=== PATIENT | female | born 1945 | race Caucasian/White ===

== ENCOUNTER 2018-08-22 14:44 | Inpatient (IN) ==
[2018-08-22] MEDS ORDERED: LIDOCAINE 2% TOP JELLY 5 ML TUBE TOP ONE (17:05)
[2018-08-22] MEDS ORDERED: LIDOCAINE 2% TOP JELLY 20 ML VIAL INTRAURETH ONE (17:07)
[2018-08-22] MEDS ORDERED: LEVOFLOXACIN INJ 500 MG in PREMIX 1 EACH IV STA (17:16)
[2018-08-22 18:52] LABS: Apearance,Urine CLOUDY (Clear); Bacteria,Urine Many /HPF (Few); Bilirubin,Urine Negative (Negative); Blood, Urine Large mg/dL (Negative); Glucose,Urine (UA) Negative (Negative); Ketones,Urine Negative (Negative); Nitrite,Urine Positive (Negative); Protein,Urine 100 MG/DL; RBC,Urine 28 /HPF (0-4); Urine Color Yellow (Yellow); Urine Specific Gravity 1.014 (1.001-1.035); Urine Urobilinogen < 2.0 EU/DL (0.2-1.0); WBC,Urine 4761 /HPF (0-6)
[2018-08-22] MEDS: MEROPENEM 1,000 MG in SODIUM CHLORIDE 0.9% 100 ML IV SCH (20:12)
[2018-08-22] MEDS ORDERED: MORPHINE SULFATE PO PRN (21:36)
[2018-08-22] MEDS ORDERED: LEVALBUTEROL 0.31 MG/3 ML NEB RESP TX PRN (21:36)
[2018-08-22] MEDS ORDERED: IPRATROPIUM 500 MCG/2.5 ML NEB RESP TX PRN (21:36)
[2018-08-22] MEDS ORDERED: MAGNESIUM HYDROXIDE SUSP 30 ML UDCUP PO PRN (21:36)
[2018-08-22] MEDS ORDERED: DEXTROSE 50% 25 GM/50 ML SYRINGE IV PRN (21:36)
[2018-08-22] MEDS ORDERED: LORazepam 0.5 MG TABLET PO PRN (21:36)
[2018-08-22] MEDS ORDERED: ONDANSETRON 4 MG/2 ML VIAL IV PRN (21:36)
[2018-08-22] MEDS ORDERED: GLUCAGON 1 MG VIAL IM PRN (21:36)
[2018-08-22] MEDS: risperiDONE 0.5 MG TABLET PO SCH (22:25)
[2018-08-22] MEDS: cloNIDine 0.1 MG TABLET PO PRN (22:25)
[2018-08-22] MEDS: DONEPEZIL 10 MG TABLET PO SCH (22:25)
[2018-08-22] MEDS: SODIUM CHLORIDE 0.9% 1,000 ML IV SCH (22:27)
[2018-08-22] MEDS: INSULIN LISPRO 100 UNIT/ML SUBCUT SCH (22:27)
[2018-08-22] MEDS: FAMOTIDINE 20 MG TABLET PO SCH (22:29)
[2018-08-22] MEDS: BUDESONIDE 0.25 MG/2 ML NEB RESP TX SCH ×2 (23:30)
[2018-08-23] MEDS: MEROPENEM 1,000 MG in SODIUM CHLORIDE 0.9% 100 ML IV SCH ×2 (06:07→18:05)
[2018-08-23] MEDS: SODIUM CHLORIDE 0.9% 1,000 ML IV SCH ×3 (06:07→18:11)
[2018-08-23 07:11] LABS: Basophils % 0.1 % (0.0-0.8); Eosinophils # 0.1 10*3/uL (0.0-0.87); Eosinophils % 1.5 % (0.00-10.9); Hematocrit 28.1 VOL% (35.7-47.0); Hemoglobin 9.2 GM/DL (12.0-16.0); Immature Granulocytes % 0.4 %; Immature Granulocytes Absolute 0.03 #; Lymphocytes # 0.6 10*3/uL (1.4-4.0); Lymphocytes % 9.1 % (21.3-54.2); Mean Corpuscular HGB Conc 32.7 GM/DL (32-36); Mean Corpuscular Hemoglobin 30 PG (27-34); Mean Corpuscular Volume 90.4 FL (87-102); Mean Platelet Volume 10.2 FL (9.6-12.0); Monocytes # 0.7 10*3/uL (0.11-0.8); Monocytes % 10.2 % (1.7-12.7); Neutrophils # 5.3 10*3/uL (1.4-7.4); Neutrophils % 78.7 % (38.7-73.9); Platelet Count 147 T/CUMM (130-400); Red Blood Count 3.11 MC/CUMM (3.8-5.5); Red Cell Distribution Width 12.8 % (9.3-17.3); White Blood Count 6.7 T/CUMM (4-12)
[2018-08-23] MEDS: BUDESONIDE 0.25 MG/2 ML NEB RESP TX SCH ×2 (07:18→19:52)
[2018-08-23 07:37] LABS: Osmolality,Calculated 283.5 MOS/KG (273-304); Potassium 3.3 MMOL/L (3.5-5.1)
[2018-08-23 07:39] LABS: Eosinophils 3 % (0-10); Lymphocytes 6 % (20-55); Nucleated Red Blood Cells 1 (0-5); Segmented Neutrophils 85 % (50-85); Total Cells Counted 100
[2018-08-23 07:40] LABS: Hypochromasia 1+; Platelet Estimate Normal
[2018-08-23] MEDS: amLODIPine 10 MG TABLET PO SCH (08:53)
[2018-08-23] MEDS: risperiDONE 0.5 MG TABLET PO SCH ×2 (08:53→22:38)
[2018-08-23] MEDS: FAMOTIDINE 20 MG TABLET PO SCH (08:53)
[2018-08-23] MEDS: INSULIN LISPRO 100 UNIT/ML SUBCUT SCH ×4 (09:01→22:39)
[2018-08-23] MEDS ORDERED: MAGNESIUM SULF RIDER 4 GM in PREMIX 1 EACH IV PRN (12:34)
[2018-08-23] MEDS: LEVOFLOXACIN INJ 250 MG in PREMIX 1 EACH IV SCH (18:05)
[2018-08-23] MEDS ORDERED: POTASSIUM CHLORIDE 20 MEQ TABLET PO PRN (21:52)
[2018-08-23] MEDS: DONEPEZIL 10 MG TABLET PO SCH (22:38)
[2018-08-23] MEDS: POTASSIUM CHLORIDE 20 MEQ TABLET PO PRN (23:26)
[2018-08-24] MEDS: POTASSIUM CHLORIDE 20 MEQ TABLET PO PRN ×2 (01:34→03:45)
[2018-08-24 05:11] LABS: Calcium 7.7 MG/DL (8.5-10.1); Osmolality,Calculated 278.7 MOS/KG (273-304); Potassium 3.8 MMOL/L (3.5-5.1)
[2018-08-24 05:44] LABS: Basophils % 0.2 % (0.0-0.8); Eosinophils % 0.9 % (0.00-10.9); Hematocrit 30.3 VOL% (35.7-47.0); Hemoglobin 9.7 GM/DL (12.0-16.0); Immature Granulocytes % 1.4 %; Immature Granulocytes Absolute 0.06 #; Lymphocytes # 0.6 10*3/uL (1.4-4.0); Lymphocytes % 14.6 % (21.3-54.2); Mean Corpuscular Hemoglobin 29 PG (27-34); Mean Corpuscular Volume 90.7 FL (87-102); Mean Platelet Volume 9.9 FL (9.6-12.0); Monocytes # 0.5 10*3/uL (0.11-0.8); Monocytes % 10.8 % (1.7-12.7); Neutrophils # 3.2 10*3/uL (1.4-7.4); Neutrophils % 72.1 % (38.7-73.9); Platelet Count 141 T/CUMM (130-400); Red Blood Count 3.34 MC/CUMM (3.8-5.5); White Blood Count 4.4 T/CUMM (4-12)
[2018-08-24] MEDS: MEROPENEM 1,000 MG in SODIUM CHLORIDE 0.9% 100 ML IV SCH ×2 (06:01→23:35)
[2018-08-24] MEDS: SODIUM CHLORIDE 0.9% 1,000 ML IV SCH (06:01)
[2018-08-24] MEDS: LEVOTHYROXINE 25 MCG TABLET PO SCH (06:02)
[2018-08-24 06:18] LABS: Band Neutrophils 1 % (0-10); Eosinophils 2 % (0-10); Lymphocytes 14 % (20-55); Platelet Estimate Adequate; Segmented Neutrophils 75 % (50-85); Total Cells Counted 100
[2018-08-24 06:19] LABS: Hypochromasia 1+
[2018-08-24] MEDS: BUDESONIDE 0.25 MG/2 ML NEB RESP TX SCH ×2 (08:34→19:58)
[2018-08-24] MEDS: INSULIN LISPRO 100 UNIT/ML SUBCUT SCH ×4 (08:54→23:38)
[2018-08-24] MEDS: risperiDONE 0.5 MG TABLET PO SCH ×2 (08:56→23:36)
[2018-08-24] MEDS: cloNIDine 0.1 MG TABLET PO PRN (08:56)
[2018-08-24] MEDS: FAMOTIDINE 20 MG TABLET PO SCH (08:56)
[2018-08-24] MEDS: amLODIPine 10 MG TABLET PO SCH (08:56)
[2018-08-24] MEDS: MAGNESIUM SULF RIDER 2 GM in PREMIX 1 EACH IV PRN ×2 (08:57→14:43)
[2018-08-24] MEDS ORDERED: LORazepam 0.5 MG TABLET PO PRN (11:33)
[2018-08-24] MEDS: LEVOFLOXACIN INJ 250 MG in PREMIX 1 EACH IV SCH (17:14)
[2018-08-24] MEDS: DONEPEZIL 10 MG TABLET PO SCH (23:38)
[2018-08-25] MEDS: LEVOTHYROXINE 25 MCG TABLET PO SCH (06:18)
[2018-08-25] MEDS: BUDESONIDE 0.25 MG/2 ML NEB RESP TX SCH (08:07)
[2018-08-25] MEDS: INSULIN LISPRO 100 UNIT/ML SUBCUT SCH ×3 (08:14→16:57)
[2018-08-25] MEDS: MEROPENEM 1,000 MG in SODIUM CHLORIDE 0.9% 100 ML IV SCH ×2 (09:08→10:05)
[2018-08-25] MEDS: amLODIPine 10 MG TABLET PO SCH (09:08)
[2018-08-25] MEDS: FAMOTIDINE 20 MG TABLET PO SCH (09:08)
[2018-08-25] MEDS: risperiDONE 0.5 MG TABLET PO SCH (09:09)
[2018-08-25 12:18] VITALS: BP 148/105
== END 2018-08-25 16:22 | DRG 690 ==
LOC: N.ED 14:44 → SUATTDRO 18:07 → N.EDINP 18:07 → N.4E 21:37
PROVIDERS: ADMIT Internal Medicine; ATTEND Internal Medicine